=== PATIENT | female | born 1980 | race Caucasian/White ===

== ENCOUNTER 2019-09-10 09:19 | Emergency (ER) | payer BC ==
[~2019-09-10] VITALS: Ht 162.6 cm; Wt 67.6 kg
--- NOTE | 2019-09-10 09:19 | NUR ---
BROUGHT BACK TO BED 7 AND TRIAGED, REPORT GIVEN TO RADHA
[2019-09-10 09:20] VITALS: BP_SYST 140
--- NOTE | 2019-09-10 09:22 | NUR ---
PT ATTEMPTED TO GIVE URINE BY UNABLE TO AT THIS TIME.
--- NOTE | 2019-09-10 09:39 | NUR ---
DR SERRANO AT BEDSIDE FOR EVALUATION.
[2019-09-10] MEDS ORDERED: KETOROLAC TROMETHAMINE 60 MG/2 ML VIAL IM ONE (09:45)
--- NOTE | 2019-09-10 10:00 | NUR ---
Lab at bedside for blood draw.
[2019-09-10 10:24] LABS: BASOPHILS # (AUTO) 0.1 K/uL (0.0-0.2); BASOPHILS % (AUTO) 0.5 % (0.0-2.0); EOSINOPHILS # (AUTO) 0.1 K/uL (0.0-0.4); EOSINOPHILS % (AUTO) 0.6 % (0.0-4.0); HEMATOCRIT 32.6 % (36-48); HEMOGLOBIN 10.1 g/dL (12.0-16.0); LYMPHOCYTES # (AUTO) 1.2 K/uL (1.0-5.5); LYMPHOCYTES % (AUTO) 7.6 % (20.5-51.5); MEAN CORPUSCULAR HEMOGLOBIN 23 pg (27-31); MEAN CORPUSCULAR HGB CONC 31 % (32-36); MEAN CORPUSCULAR VOLUME 73 fL (79.0-98.0); MONOCYTES # (AUTO) 0.8 K/uL (0.0-1.0); MONOCYTES % (AUTO) 4.9 % (1.7-9.3); NEUTROPHILS % (AUTO) 86.4 % (40.0-70.0); PLATELET COUNT (AUTO) 339 K/uL (130-430); RED BLOOD CELL COUNT(AUTO) 4.48 MIL/uL (4.2-6.2); WHITE BLOOD COUNT (AUTO) 16.1 K/uL (4.8-10.8)
--- NOTE | 2019-09-10 10:51 | NUR ---
Medicated with Toradol for pain as ordered by .
[2019-09-10 11:25] VITALS: BP_SYST 126
--- NOTE | 2019-09-10 11:26 | NUR ---
Patient given written and verbal discharge instructions and verbalizes understanding. ER MD discussed with patient the results and treatment provided. Patient in stable condition. ID arm band removed. Rx of PROVERA, TRAMADOL, NAPROXE given. Patient educated on pain management and to follow up with PMD. Pain Scale 0/10. Opportunity for questions provided and answered. Medication side effect fact sheet provided.
== END 2019-09-10 11:26 | disposition home or self-care (01) ==
LOC: SED 09:19
DX: D36.7 Benign neoplasm of other specified sites (principal)
CPT/HCPCS: 36415; 84703; 85025; 96372; 99283; J1885